=== PATIENT | female | born 1985 | race Caucasian/White ===

== ENCOUNTER 2021-11-08 19:31 | Emergency (ER) | payer MEDICAID ==
[~2021-11-08] VITALS: Ht 160 cm; Wt 80.0 kg
[2021-11-08] MEDS ORDERED: LORAZEPAM 1MG TABLET PO ONE (20:45)
[2021-11-08] MEDS ORDERED: IBUPROFEN 600MG TABLET PO ONE (20:45)
[2021-11-08] MEDS ORDERED: IBUP-2029 MT (21:27)
[2021-11-08] MEDS ORDERED: METH-653 MT (21:27)
[2021-11-08 21:30] VITALS: BP 122/65
== END 2021-11-08 21:30 | disposition home or self-care (01) ==
LOC: ER 19:31
DX: M54.50 Low back pain, unspecified (principal); J45.909 Unspecified asthma, uncomplicated; Z98.890 Other specified postprocedural states; V43.52XA Car driver injured in collision with other type car in traffic accident, initial encounter; Y93.89 Activity, other specified; Y92.414 Local residential or business street as the place of occurrence of the external cause
CPT/HCPCS: 99282